=== PATIENT | male | born 1955 | race Caucasian/White ===

== ENCOUNTER 2024-11-14 12:03 | Outpatient (CLI) | payer MEDICARE | END 2024-11-14 12:04 | disposition home or self-care (01) | LOC: CSHRAD 12:03 | PROVIDERS: ATTEND Family Medicine Sports Medicine | DX: M54.41 Lumbago with sciatica, right side (principal); R07.81 Pleurodynia; M47.816 Spondylosis without myelopathy or radiculopathy, lumbar region; R91.8 Other nonspecific abnormal finding of lung field | CPT/HCPCS: 72100 ==

== ENCOUNTER 2024-11-14 15:46 | Emergency (ER) | payer MEDICARE, OTHER ==
[2024-11-14 16:51] LABS: #Basophils Less than 0.03 10x3/uL (0.0-0.2); #Eosinophils 0.03 10x3/uL (0.0-0.5); #Monocytes 0.26 10x3/uL (0.0-1.1); #Neutrophils 0.45 10x3/uL (1.5-8.4); %Basophils 0.3 % (0.0-2.0); %Eosinophils 0.9 % (0.0-6.0); %Lymphocytes 74.2 % (18.0-47.0); %Monocytes 7.8 % (0.0-10.0); %Neutrophils 13.5 % (40.0-75.0); Hematocrit 32.9 % (38.8-50.0); Hemoglobin 10.6 g/dL (13.5-17.5); Mean Corpuscular Hemoglobin 32.0 pg (27.0-33.0); Mean Corpuscular Volume 99.4 fL (81.2-95.1); Platelet Count 74 10x3/uL (150-450); Red Blood Cell (RBC) Count 3.31 10x6/uL (4.32-5.72); White Blood Cell (WBC) Count 3.33 10x3/uL (3.5-10.5)
[2024-11-14 17:02] LABS: Anion Gap 14 mmol/L (10-20); BUN (Urea Nitrogen) 45 mg/dL (8.4-25.7); Calc. Creatinine Clearance 0 mL/min (70-130); Calcium 9.2 mg/dL (7.8-10.44); Carbon Dioxide 20 mmol/L (23-31); Chloride 107 mmol/L (98-107); Glucose 159 mg/dL (83-110); Potassium 4.5 mmol/L (3.5-5.1); Sodium 136 mmol/L (136-145)
== END 2024-11-14 20:26 | disposition home or self-care (01) ==
LOC: CSHERS 15:46
DX: R07.81 Pleurodynia (principal); N18.9 Chronic kidney disease, unspecified; J84.10 Pulmonary fibrosis, unspecified; R93.2 Abnormal findings on diagnostic imaging of liver and biliary tract; D61.818 Other pancytopenia; Z55.6 Problems related to health literacy; Z75.3 Unavailability and inaccessibility of health-care facilities; M54.41 Lumbago with sciatica, right side; M47.816 Spondylosis without myelopathy or radiculopathy, lumbar region; R91.8 Other nonspecific abnormal finding of lung field
CPT/HCPCS: 71250; 72100; 80048; 85025; 93005